=== PATIENT | male | born 1945 | race Caucasian/White ===

== ENCOUNTER → 2021-03-21 | Outpatient (CLI) | payer MEDICARE, BC ==
[~2021-03-21] MED LIST: ASPIRIN 81M81 MG/TA2 PO; FERROUS SU325 MG/TAB PO; FOLIC ACID 40400 MCG PO; GLUCOTROL XL2.5 MG PO; INDERAL40 MG PO; PREVACID 30MG30 M1 PO; VITAMIN C500 MG PO; ZYLOPRIM 100MG100 MG PO
== END ==
LOC: COL.RAD 02-25 12:30
DX: M51.36 Other intervertebral disc degeneration, lumbar region (principal); M47.816 Spondylosis without myelopathy or radiculopathy, lumbar region; M48.061 Spinal stenosis, lumbar region without neurogenic claudication; M43.06 Spondylolysis, lumbar region; G20 Parkinson's disease
CPT/HCPCS: A9585